=== PATIENT | female | born 1990 | race African-American/Black ===

== ENCOUNTER 2017-08-21 04:56 | Emergency (ER) | payer SELFPAY ==
[~2017-08-21] VITALS: Ht 165.1 cm; Wt 84.0 kg
[~2017-08-21 04:56] MED LIST: BACT800T5 PO; PENI500T PO
[2017-08-21 04:59] VITALS: BP 195/95; PULSE 118; RESP 18; TEMP 98.8; O2SAT 99
[2017-08-21 05:16] VITALS: BP 128/83; PULSE 72; RESP 16; O2SAT 99
[2017-08-21] MEDS ORDERED: SODIUM CHLOR 0.9% 1000 ML INJ 1,000 ML IV ONE (06:28)
--- NOTE | 2017-08-21 06:48 | RADRPT ---
EXAM DATE/TIME: 08/21/2017 06:25 [facility] COMPARISON: No previous studies available for comparison. INDICATIONS : Cough. MEDICAL HISTORY : None. SURGICAL HISTORY : None. ENCOUNTER: Initial ACUITY: 1 day PAIN SCORE: 0/10 LOCATION: Bilateral chest FINDINGS: A single view of the chest demonstrates the lungs to be symmetrically aerated without evidence of mas s, infiltrate or effusion. The cardiomediastinal contours are unremarkable. Osseous structures are intact. CONCLUSION: No acute disease. Sanju Lorenzo MD on August 21, 2017 at 6:47 Board Certified Radiologist. This report was verified electronically.
--- NOTE | 2017-08-21 06:50 | PD ---
HPI Chief Complaint: Numbness/Tingling Time Seen by Provider: 05:54 Travel History International Travel<30 days: No Contact w/Intl Traveler<30days: No Traveled to known affect area: No History of Present Illness HPI The patient is a 27-year-old female who presents to the [facility] emergency department with a history of reportedly having onset of numbness to the left side of her face, left arm, left leg that began at 4 PM yesterday. She reports that the symptoms seemed to be worsening with time. She reports that she feels weak and her left upper extremity as well. The patient reports that it began while she was smoking marijuana. She has smoked marijuana in the past. She also reports that she uses cocaine. She last used cocaine 4 days ago. On review of systems, the patient denies any difficulty with word finding ability, facial droop, vision changes, or dizziness. The patient denies having any chest pain, chest pressure, or shortness of breath. She denies ever having symptoms like this previously. On review of systems otherwise, the patient denies having any recent fevers, cough, congestion, neck pain, abdominal pain, vomiting, diarrhea, urinary symptoms, or other neurologic symptoms. LMP August 19, 2017. [facility] Past Medical History Narrative Medical The patient's past medical history is significant for kidney stones, polysubstance abuse. Diminished Hearing: No Kidney Stones: Yes Immunizations Current: Yes ?: Not LMP: 08/19/17 Past Surgical History Surgical History: No Previous Surgery Social History Alcohol Use: Yes (OCC) Tobacco Use: Yes ("ALL DAY") Substance Use: Yes (MARIJUANA, COCAINE ) Allergies-Medications (Allergen,Severity, Reaction): Coded Allergies: No Known Allergies (Unverified , 08/21/17) Reported Meds & Prescriptions Reported Meds & Active Scripts Active Review of Systems Except as stated in HPI: all other systems reviewed are Neg General / Constitutional: No: Fever Eyes: No: Visual changes HENT: No: Headaches Cardiovascular: No: Chest Pain or Discomfort Respiratory: No: Shortness of Breath Gastrointestinal: No: Abdominal Pain Genitourinary: No: Dysuria Musculoskeletal: No: Pain Skin: No Rash Neurologic: Positive: Focal Abnormalities, Sensory Disturbance, No: Weakness, Change in Mentation, Slurred Speech, Paresthesia Psychiatric: No: Depression Endocrine: No: Polydipsia Hematologic/Lymphatic: No: Easy Bruising Physical Exam Narrative General: The patient is a well-developed well-nourished female in no acute distress. Head and Neck exam: Head is normocephalic atraumatic. Eyes: EOMI, pupils are equal round and reactive to light. Nose: Midline septum with pink mucous membranes Mouth: Dentition unremarkable. Moist mucus membranes. Posterior oropharynx is not erythematous. No tonsillar hypertrophy. Uvula midline. Airway patent. Neck: No palpable lymphadenopathy. No nuchal rigidity. No thyromegaly. Cardiovascular: Regular rate and rhythm without murmurs, gallops, or rubs. No pulse deficit to the extremities. Lungs: Clear to auscultation bilaterally. No wheezes, rhonchi, or rales. Abdomen: Soft, without tenderness to palpation in all 4 quadrants of the abdomen. No guarding, rebound, or rigidity. Normal bowel sounds are audible. No tenderness on palpation of McBurney's point. Extremities: No clubbing, cyanosis, or edema. 2+ pulses in all 4 extremities. No calf tenderness on palpation. Back: No spinous process tenderness to palpation. No costovertebral angle tenderness to palpation. Neurologic Exam: Cranial nerves 2-12 were intact on exam. Strength is 5/5 in all 4 extremities. The patient reports having numbness in the left upper extremity, left side of the face, and left lower extremity compared to the right. No dysdiadochokinesis. Good finger to nose and Heel to fuentes bilaterally. Skin Exam: No rash noted. Intact skin that is warm and dry. Data Data Last Documented VS Vital Signs Date Time Temp Pulse Resp B/P (MAP) Pulse Ox O2 Delivery O2 Flow Rate FiO2 08/21/17 05:16 72 16 128/83 (98) 99 Room Air 08/21/17 04:59 98.8 Orders Orders Electrocardiogram (08/21/17 06:24) Complete Blood Count With Diff (08/21/17 06:24) Comprehensive Metabolic Panel (08/21/17 06:24) Creatine Kinase (Cpk) (08/21/17 06:24) Ckmb (Isoenzyme) Profile (08/21/17 06:24) Troponin I (08/21/17 06:24) Prothrombin Time / Inr (Pt) (08/21/17 06:24) Act Partial Throm Time (Ptt) (08/21/17:24) Urinalysis - C+S If Indicated (08/21/17:24) Magnesium (Mg) (08/21/17:24) Chest, Single Ap (08/21/17:24) Ct Brain W/O Iv Contrast(Rout) (08/21/17 06:24) Iv Access Insert/Monitor (08/21/17:24) Ecg Monitoring (08/21/17) Oximetry (08/21/17:24) Ed Urine Pregnancytest Poc (08/21/17:24) Drug Screen, Random Urine (08/21/17:) Alcohol (Ethanol) (08/21/17:24) [place] (08/21/17:24) Sodium Chlor 0.9% 1000 Ml Inj (Ns 1000 M (08/21/17 06:28) CKMB (08/21/17 06:30) CKMB% (08/21/17 06:30) Labs Laboratory Tests Test 08/21/17 06:30 White Blood Count 7.8 TH/MM3 Red Blood Count 4.34 MIL/MM3 Hemoglobin 13.0 GM/DL Hematocrit 38.4 % Mean Corpuscular Volume 88.5 FL Mean Corpuscular Hemoglobin 30.0 PG Mean Corpuscular Hemoglobin Concent 33.9 % Red Cell Distribution Width 12.8 % Platelet Count 381 TH/MM3 Mean Platelet Volume 9.0 FL Neutrophils (%) (Auto) 53.3 % Lymphocytes (%) (Auto) 33.9 % Monocytes (%) (Auto) 10.6 % Eosinophils (%) (Auto) 1.1 % Basophils (%) (Auto) 1.1 % Neutrophils # (Auto) 4.2 TH/MM3 Lymphocytes # (Auto) 2.6 TH/MM3 Monocytes # (Auto) 0.8 TH/MM3 Eosinophils # (Auto) 0.1 TH/MM3 Basophils # (Auto) 0.1 TH/MM3 CBC Comment DIFF FINAL Differential Comment Prothrombin Time 12.1 SEC Prothromb Time International Ratio 1.1 RATIO Activated Partial Thromboplast Time 30.0 SEC Blood Urea Nitrogen 17 MG/DL Creatinine 0.74 MG/DL Random Glucose 99 MG/DL Total Protein 8.3 GM/DL Albumin 4.3 GM/DL Calcium Level 9.5 MG/DL Magnesium Level 2.2 MG/DL Alkaline Phosphatase 100 U/L Aspartate Amino Transf (AST/SGOT) 25 U/L Alanine Aminotransferase (ALT/SGPT) 20 U/L Total Bilirubin 0.8 MG/DL Sodium Level 136 MEQ/L Potassium Level 3.5 MEQ/L Chloride Level 104 MEQ/L Carbon Dioxide Level 22.9 MEQ/L Anion Gap 9 MEQ/L Estimat Glomerular Filtration Rate 115 ML/MIN Total Creatine Kinase 358 U/L Troponin I LESS THAN 0.02 NG/ML Ethyl Alcohol Level LESS THAN 3 MG/DL MDM Medical Decision Making Medical Screen Exam Complete: Yes Emergency Medical Condition: Yes Medical Record Reviewed: Yes Differential Diagnosis Intracranial mass, versus ischemic stroke, versus intracranial hemorrhage, versus somatizations. Narrative Course During the course of the patients emergency department visit, the patients history, examination, and differential diagnosis were reviewed with the patient. The patient had IV access obtained and blood work sent for analysis. The patient was placed on a monitor and storage bin tender with oximetry and blood pressure monitoring. An ECG was done on arrival. The patient's ECG reveals a sinus rhythm with a sinus arrhythmia, nonspecific ST-T wave abnormalities, heart rate of 68, QRS duration is 91 ms, QTC [address] segment elevation. The patient was initially provided normal saline at 70 mL/h. The patient's head of the bed was placed flat. The patients laboratory studies and imaging are pending at the conclusion of my shift. The patient's case will be checked out to the oncoming emergency physician for disposition based on the conclusion of the patient's workup. Diagnosis Primary Impression: Multiple neurological symptoms Susan Olson MD Aug 21, 2017 06:50
[2017-08-21 06:51] LABS: AUTOMATED NEUTROPHIL # 4.2 TH/MM3 (1.8-7.7); BASOPHIL # 0.1 TH/MM3 (0-0.2); BASOPHIL % 1.1 % (0.0-2.0); EOSINOPHIL # 0.1 TH/MM3 (0-0.4); EOSINOPHIL % 1.1 % (0.0-4.0); HEMATOCRIT 38.4 % (35.0-46.0); HEMO FLAGS DIFF FINAL; LYMPH % 33.9 % (9.0-44.0); LYMPHOCYTE # 2.6 TH/MM3 (1.0-4.8); MEAN CELL VOLUME 88.5 FL (80.0-100.0); MEAN CORPUSCULAR HGB CONC 33.9 % (32.0-36.0); MONO % 10.6 % (0.0-8.0); NEUT % 53.3 % (16.0-70.0); PLATELET COUNT 381 TH/MM3 (150-450); RED BLOOD COUNT 4.34 MIL/MM3 (4.00-5.30); RED CELL DISTRIBUTION WIDTH 12.8 % (11.6-17.2); WHITE BLOOD COUNT 7.8 TH/MM3 (4.0-11.0)
[2017-08-21 06:58] LABS: INTERNATIONAL NORMALIZED RATIO 1.1 RATIO; PROTHROMBIN TIME - PATIENT 12.1 SEC (9.8-11.6)
[2017-08-21 07:10] LABS: ANION GAP 9 MEQ/L (5-15); AST (GOT) 25 U/L (15-37); BICARBONATE 22.9 MEQ/L (21.0-32.0); BLOOD UREA NITROGEN 17 MG/DL (7-18); CHLORIDE 104 MEQ/L (98-107); GLOMERULAR FILTRATION RATE 115 ML/MIN (>89); MAGNESIUM 2.2 MG/DL (1.5-2.5); POTASSIUM 3.5 MEQ/L (3.5-5.1); SODIUM (NA) 136 MEQ/L (136-145)
[2017-08-21 07:12] LABS: ALCOHOL LESS THAN 3 MG/DL (0-5); ALT (GPT) 20 U/L (10-53)
[2017-08-21 07:15] LABS: ALKALINE PHOSPHATASE 100 U/L (45-117); CREATINE KINASE 358 U/L (26-192); TOTAL BILIRUBIN ADULT 0.8 MG/DL (0.2-1.0)
[2017-08-21 07:28] LABS: CKMB 4.9 NG/ML (0.5-3.6)
--- NOTE | 2017-08-21 08:45 | PD ---
Physical Exam Date Seen by Provider: Aug 21, 2017 Time Seen by Provider: 08:43 Narrative 27 years old female came to the emergency room for tingling and numbness kind of sensation on the left side of her body. Patient was seen by a the previous ER physician. Please refer to her notes for history and physical details. Data Data Last Documented VS Vital Signs Date Time Temp Pulse Resp B/P (MAP) Pulse Ox O2 Delivery O2 Flow Rate FiO2 08/21/17 12:33 80 15 99 08/21/17 05:16 Room Air 08/21/17 04:59 98.8 Orders Orders Electrocardiogram (08/21/17 06:24) Complete Blood Count With Diff (08/21/17 06:24) Comprehensive Metabolic Panel (08/21/17:24) Creatine Kinase (Cpk) (08/21/17:24) Ckmb (Isoenzyme) Profile (08/21/17 06:24) Troponin I (08/21/17 06:24) Prothrombin Time / Inr (Pt) (08/21/17 06:24) Act Partial Throm Time (Ptt) (08/21/17 06:24) Urinalysis - C+S If Indicated (08/21/17 06:24) Magnesium (Mg) (08/21/17 06:24) Chest, Single Ap (08/21/17 06:24) Ct Brain W/O Iv Contrast(Rout) (08/21/17 06:24) Iv Access Insert/Monitor (08/21/17 06:24) Ecg Monitoring (08/21/17 06:24) Oximetry (08/21/17 06:24) Ed Urine Pregnancytest Poc (08/21/17 06:24) Drug Screen, Random Urine (08/21/17 06:24) Alcohol (Ethanol) (08/21/17 06:24) [place] (08/21/17 06:24) Sodium Chlor 0.9% 1000 Ml Inj (Ns 1000 M (08/21/17 06:28) CKMB (08/21/17 06:30) CKMB% (08/21/17 06:30) Mra Brain W/O Contrast (Cow) (08/21/17 ) Mri Brain W/O Contrast (08/21/17 ) Ed Discharge Order (08/21/17 12:39) Labs Laboratory Tests Test 08/21/17 06:30 08/21/17 08:15 08/22/17 19:23 White Blood Count 7.8 TH/MM3 Red Blood Count 4.34 MIL/MM3 Hemoglobin 13.0 GM/DL Hematocrit 38.4 % Mean Corpuscular Volume 88.5 FL Mean Corpuscular Hemoglobin 30.0 PG Mean Corpuscular Hemoglobin Concent 33.9 % Red Cell Distribution Width 12.8 % Platelet Count 381 TH/MM3 Mean Platelet Volume 9.0 FL Neutrophils (%) (Auto) 53.3 % Lymphocytes (%) (Auto) 33.9 % Monocytes (%) (Auto) 10.6 % Eosinophils (%) (Auto) 1.1 % Basophils (%) (Auto) 1.1 % Neutrophils # (Auto) 4.2 TH/MM3 Lymphocytes # (Auto) 2.6 TH/MM3 Monocytes # (Auto) 0.8 TH/MM3 Eosinophils # (Auto) 0.1 TH/MM3 Basophils # (Auto) 0.1 TH/MM3 CBC Comment DIFF FINAL Differential Comment Prothrombin Time 12.1 SEC Prothromb Time International Ratio 1.1 RATIO Activated Partial Thromboplast Time 30.0 SEC Blood Urea Nitrogen 17 MG/DL Creatinine 0.74 MG/DL Random Glucose 99 MG/DL Total Protein 8.3 GM/DL Albumin 4.3 GM/DL Calcium Level 9.5 MG/DL Magnesium Level 2.2 MG/DL Alkaline Phosphatase 100 U/L Aspartate Amino Transf (AST/SGOT) 25 U/L Alanine Aminotransferase (ALT/SGPT) 20 U/L Total Bilirubin 0.8 MG/DL Sodium Level 136 MEQ/L Potassium Level 3.5 MEQ/L Chloride Level 104 MEQ/L Carbon Dioxide Level 22.9 MEQ/L Anion Gap 9 MEQ/L Estimat Glomerular Filtration Rate 115 ML/MIN Total Creatine Kinase 358 U/L Creatine Kinase MB 4.9 NG/ML Creatine Kinase MB % 1.4 % Troponin I LESS THAN 0.02 NG/ML Ethyl Alcohol Level LESS THAN 3 MG/DL Urine Color YELLOW Urine Turbidity HAZY Urine pH 6.0 Urine Specific [place] 1.042 Urine Protein 30 mg/dL Urine Glucose (UA) NEG mg/dL Urine Ketones NEG mg/dL Urine Occult Blood NEG Urine Nitrite NEG Urine Bilirubin NEG Urine Urobilinogen 4.0 MG/DL Urine Leukocyte Esterase TRACE Urine RBC 3 /hpf Urine WBC 5 /hpf Urine Squamous Epithelial Cells 2 /hpf Urine Bacteria FEW /hpf Urine Hyaline Casts 1 /lpf Urine Mucus MANY /lpf Microscopic Urinalysis Comment CULT NOT INDICATED Urine Opiates Screen NEG Urine Barbiturates Screen NEG Urine Amphetamines Screen NEG Urine Benzodiazepines Screen NEG Urine Cocaine Screen POS Urine Cannabinoids Screen POS Lab Scanned Report Lab Reports - Other [id number] [facility] Supervised Visit with KATHY: No Narrative Course 9:[address] scan of the head is negative. I went and reassessed the patient and she says she is still feeling numb on her entire left side of the body. The nurse just told me that she noticed that patient was chewing on a candy and her left side of the face looked different and symmetrical. I've ordered an MRI at this point. Awaiting for the MRI to be done and resulted. 12:22 PM MRI and MRA are within normal limit. I'll discharge her home. Based on these test results being normal and her a chance of stroke is highly unlikely. Diagnosis Primary Impression: Multiple neurological symptoms Additional Impression: Paresthesia Referrals: Primary Care Physician Additional Instruction: Please follow-up with your primary care. Disposition: 01 DISCHARGE HOME Condition: Stable Carlos Alberto Cee MD Aug 21, 2017 08:45
--- NOTE | 2017-08-21 09:11 | RADRPT ---
EXAM DATE/TIME: 08/21/2017 08:54 [facility] COMPARISON: No previous studies available for comparison. INDICATIONS : Left sided facial and upper extremity numbness. RADIATION DOSE: 32.98 CTDIvol (mGy) MEDICAL HISTORY : None SURGICAL HISTORY : None. ENCOUNTER: Initial ACUITY: 1 day PAIN SCALE: 0/10 LOCATION: cranial TECHNIQUE: Multiple contiguous axial images were obtained of the head. Using automated exposure control and adj ustment of the mA and/or kV according to patient size, radiation dose was kept as low as reasonably a chievable to obtain optimal diagnostic quality images. DICOM format image data is available electro nically for review and comparison. FINDINGS: CEREBRUM: The ventricles are normal for age. No evidence of midline shift, mass lesion, hemorrhage or acute in farction. No extra-axial fluid collections are seen. POSTERIOR FOSSA: The cerebellum and brainstem are intact. The 4th ventricle is midline. The cerebellopontine angle i s unremarkable. EXTRACRANIAL: The visualized portion of the orbits is intact. SKULL: The calvaria is intact. No evidence of skull fracture. CONCLUSION: Negative for acute process. MRI may be of benefit. Vishnu Redman MD FACR on August 21, 2017 at 9:05 Board Certified Radiologist. This report was verified electronically.
[2017-08-21 09:29] LABS: BACTERIA, URINE FEW /hpf; BLOOD, URINE NEG (NEG); COMMENT (UR) CULT NOT INDICATED; CULTURE IF INDICATED CULT NOT INDICATED; GLUCOSE,URINE NEG (NEG); HYALINE CAST, URINE 1 /lpf (RARE); KETONE, URINE NEG (NEG); MUCUS URINE MANY /lpf (OCC); NITRITE,URINE NEG (NEG); SQUAMOUS EPITHELIAL CELL URINE 2 /hpf (0-5); URINE COLOR YELLOW (YELLW/STRAW)
--- NOTE | 2017-08-21 11:49 | RADRPT ---
EXAM DATE/TIME: 08/21/2017 11:14 [facility] COMPARISON: MRI BRAIN W/O CONTRAST, August 21, 2017, 11:14. INDICATIONS : Left sided facial tinging. MEDICAL HISTORY : Renal calculi. SURGICAL HISTORY : None. ENCOUNTER: Subsequent ACUITY: 1 day PAIN SCORE: 0/10 LOCATION: head. Please note a normal MRA of the brain does not entirely exclude the possibility of a small aneurysm, nor the possibility of distal intracranial vessel disease. TECHNIQUE: 3D time of flight MRA was performed. Source images, multiplanar STS MIP, and 3D volume MIP reconstru ctions were reviewed. FINDINGS: There is excellent visualization of the major intracranial arteries out to the second-order branch ve ssels. There is no evidence for aneurysm, vessel truncation or stenosis, and no evidence for vascula r malformation. CONCLUSION: Normal examination. Caio Aguilar Jr., MD on August 21, 2017 at 11:46 Board Certified Radiologist. This report was verified electronically.
--- NOTE | 2017-08-21 11:51 | RADRPT ---
EXAM DATE/TIME: 08/21/2017 11:14 [facility] COMPARISON: No previous studies available for comparison. INDICATIONS : Left sided facial tingling. MEDICAL HISTORY : Renal calculi. SURGICAL HISTORY : None. ENCOUNTER: Subsequent ACUITY: 1 day PAIN SCORE: 0/10 LOCATION: head. TECHNIQUE: Multiplanar, multisequence MRI of the brain was performed without contrast. FINDINGS: CEREBRUM: The ventricles are normal for age. No evidence of midline shift, mass lesion, hemorrhage or acute in farction. No extraaxial fluid collections are seen. The pituitary gland and suprasellar cistern are normal in configuration. WHITE MATTER: No significant signal abnormalities are seen in the white matter. POSTERIOR FOSSA: The cerebellum and brainstem are intact. The 4th ventricle is midline. The cerebellopontine angle is unremarkable. The cerebellar tonsils are normal in position. DIFFUSION IMAGING: No focal areas of restricted diffusion are seen. No evidence of acute infarction. EXTRACRANIAL: The visualized portions of the orbits and paranasal sinuses are unremarkable. CONCLUSION: Normal examination. Caio Aguilar Jr., MD on August 21, 2017 at 11:48 Board Certified Radiologist. This report was verified electronically.
--- NOTE | 2017-08-21 14:55 | EKG ---
Date Performed: 08/21/2017 Time Performed: 06:38:16 PTAGE: 27 years EKG: Sinus rhythm WITH SINUS ARRHYTHMIA NONSPECIFIC ST & T-WAVE ABNORMALITY BORDERLINE ECG NO PREVIOUS TRACING DOCTOR: Romeo Gooden Interpretating Date/Time 08/21/2017 14:53:02
== END 2017-08-21 12:40 | disposition home or self-care (01) ==
LOC: NEPE 04:56
DX: R20.0 Anesthesia of skin (principal); R20.2 Paresthesia of skin; F12.90 Cannabis use, unspecified, uncomplicated; F14.90 Cocaine use, unspecified, uncomplicated; I49.8 Other specified cardiac arrhythmias; Z72.0 Tobacco use
CPT/HCPCS: 70450; 70544; 70551; 71010; 80053; 80307; 81001; 82550; 82552; 83735; 84484; 84703; 85025; 85610; 85730; 93005; 99285; J7030